=== PATIENT | female | born 1985 | race Caucasian/White ===

== ENCOUNTER → 2023-09-29 14:10 | Outpatient (CLI) | payer OTHER, SELFPAY ==
--- NOTE | 2023-09-29 14:11 | DI.CT.S_ITS ---
PROCEDURE: CT ANGIO CHEST PE PROTOCOL INDICATIONS: chest tightness, presyncope; dad with DVT, PE, warfarin @30 TECHNIQUE: After the administration of intravenous contrast, 2 mm thick sections acquired from the pulmonary apices to the posterior costophrenic angles. 3-dimensional maximum intensity projection (MIP) coronal and sagittal reformats were then acquired through the thorax. For radiation dose reduction, the following was used: automated exposure control, adjustment of mA and/or kV according to patient size. COMPARISON: None. FINDINGS: Image quality: Diagnostic. Pulmonary arteries: Pulmonary arteries are normal in size, and demonstrate no intraluminal filling defects to suggest central pulmonary embolism. Lower Neck: No enlarged lymph nodes. Thyroid: No thyroid nodules which require sonographic follow up, per consensus guidelines. Axillae: No enlarged lymph nodes. Chest Wall: Unremarkable. Bones: Unremarkable. Lungs and Pleura: No pneumothorax or pleural effusions. No consolidation or suspicious nodules. Incidental note of a 3 mm peripheral left upper lobe nodule (76/series 5). Heart: Heart size is normal. No pericardial effusion. Thoracic Vessels: No aortic aneurysm. Mediastinum and Gaye: No enlarged lymph nodes. Esophagus: No wall thickening. No hiatal hernia. Upper Abdomen: Visualized upper abdomen solid organs and bowel loops appear normal. IMPRESSION: No pulmonary embolus. No acute cardiopulmonary process. Dictated by: Cristian Vega M.D. on 09/29/2023 at 15:16 Approved by: Cristian Vega M.D. on 09/29/2023 at 15:22
[2023-09-29 15:58] LABS: Add Manual Diff / Slide Review NO; Basophils Absolute Auto 100 /uL (0-100); Basophils Percent Auto 0.7 % (0-2); Eosinophils Absolute Auto 100 /uL (0-450); Hematocrit 39.2 % (36-46); Hemoglobin 13.5 g/dL (12.0-16.0); Lymphocytes Absolute Auto 2600 /uL (1100-4500); Lymphocytes Percent Auto 30.4 % (25-40); Mean Corpuscular HGB Conc 34.4 % (30-36); Mean Corpuscular Hemoglobin 29.9 PG (26-34); Mean Corpuscular Volume 86.9 fL (80-100); Monocytes Absolute Auto 400 /uL (0-900); Monocytes Percent Auto 4.4 % (3-14); Neutrophils Absolute Auto 5400 /uL (1500-7000); Neutrophils Percent Auto 63.5 % (50-75); Platelet Count 229 X10^3/uL (150-400); Red Blood Cell Count 4.51 X10^6/uL (4.0-5.2); Red Cell Distribution Width 12.5 % (11.6-14.8); White Blood Cell Count 8.5 X10^3/uL (4.5-11.0)
[2023-09-29 16:39] LABS: Blood Urea Nitrogen 11 mg/dL (7-17); Calcium 9.3 mg/dL (8.4-10.2); Carbon Dioxide 23 mmol/L (22-32); Chloride 105 mmol/L (98-107); Creatine Kinase 55 U/L (30-135); Estimated Glomerular Filt Rate > 60 mL/min (>60); Glucose 83 mg/dL (70-100); HEMOLYSIS < 15 (0-50); Sodium 137 mmol/L (137-145)
[2023-09-29 16:50] LABS: Troponin I < 0.012 ng/mL (0.01-0.034)
[2023-09-29 16:54] LABS: HCG Quantitative /Beta subunit < 2.39 mIU/mL
[2023-09-29 17:12] LABS: Ferritin 32 ng/mL (6-137); Thyroid Stimulating Hormone 4.43 uIU/mL (0.47-4.68)
== END ==
PROVIDERS: PCP Family Medicine; Referring Provider Family Medicine; Visit Provider Family Medicine
DX: R07.89 Other chest pain (principal); R11.0 Nausea; R55 Syncope and collapse; R00.2 Palpitations; Z82.49 Family history of ischemic heart disease and other diseases of the circulatory system
CPT/HCPCS: 36415; 71275; 80048; 82550; 82728; 84443; 84484; 84702; 85025; Q9967

== ENCOUNTER 2023-09-29 15:10 | Emergency (ER) | payer OTHER, SELFPAY ==
[2023-09-29 15:26] VITALS: BP 129/82; PULSE 81; RESP 18; TEMP 36.8; O2SAT 98; BMI 22.6
--- NOTE | 2023-09-29 19:14 | ED.CHESTPAIN ---
HPI - Chest Pain General Chief Complaint: Chest Pain Stated Complaint: Chest pain, dizzy, nausea, sweats, Time Seen by Provider: 09/29/23 18:04 Source: patient and family Mode of arrival: Ambulatory History of Present Illness HPI narrative: Patient is a 38-year-old female who stated that last evening she was woken from sleep with an episode of having chest pain and dizziness. Also having some nausea night sweats. States the symptoms lasted approximately 30 minutes and then improved. She was evaluated the by the paramedics who reassured her that everything looked okay [place] labs to include thyroid studies and also troponin. Patient also had a CT scan of the chest earlier today which did not show any signs of pulmonary embolism or pneumonia. Related Data Home Medications Medication Instructions Recorded Confirmed albuterol sulfate 90 mcg/actuation inhalation 09/29/23 09/29/23 aerosol inhaler fluticasone furoate 100 1 ea inhalation DAILY 09/29/23 09/29/23 mcg-vilanterol 25 mcg/dose inhalation powder (Breo Ellipta) gabapentin 100 mg capsule 100 mg PO 3XD 09/29/23 09/29/23 Allergies Allergy/AdvReac Type Severity Reaction Status Date / Time No Known Drug Allergies Allergy Verified 09/29/23 15:25 Review of Systems Review of Systems ROS Unobtainable: All systems reviewed & are unremarkable except as noted in HPI and below Patient History Medical History History of gestational diabetes History of pre-eclampsia Family history of blood clots Surgical History (Updated 09/29/23 @ 10:51 by Franchesca Rosa MD) S/P Social History Smoking Status: Never smoker additional social history: PMHX: 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 -- asthma episodes since then went on a steroid inhaler and albuterol -- : GDM, Preeclampsia and csection gabapentin: 200mg for sleep MVI no estrogen regular menses 09/19- tob: none etoh: rarely FHX: warfarin -- dad -- DVT x 2, possible PE 09/2023 Smoking Status: Never smoker Substance Use Type: does not use Exam Initial Vital Signs Initial Vital Signs: Vital Signs Temperature 98.3 F 09/29/23 15:26 Pulse Rate 81 09/29/23 15:26 Respiratory Rate 18 09/29/23 15:26 Blood Pressure 129/82 09/29/23 15:26 Pulse Oximetry 98 09/29/23 15:26 Oxygen Delivery Method Room Air 09/29/23 15:26 Const General: cooperative, comfortable and No ill appearing HENMT Head: normal to inspection and normocephalic Resp Effort & Inspection: normal respiratory effort Auscultation: clear to auscultation bilaterally Cardio Rate: regular rate Rhythm: regular rhythm GI Inspection: normal to inspection Skin General: no rashes or lesions noted Neuro General: patient alert, patient awake, patient oriented x3 and moves all extremities Extrem General: normal to inspection and capillary refill normal Course Orders Ordered: ED Orders 09/29/23 18:06 EKG-12 Lead Stat 09/29/23 19:53 Troponin & CK Cardiac Panel Stat Vital Signs Vital signs: Vital Signs - 8 hr 09/29/23 20:49 Pulse Rate 79 Respiratory Rate 16 Blood Pressure 112/77 Pulse Oximetry 98 Oxygen Delivery Method Room Air MDM - Chest Pain Medical Records Data Attestation: I reviewed the patient's medical records. Lab Data Attestation: I reviewed the patient's lab results. Labs: Lab Results 09/29/23 Range/Units 19:53 Total Creatine Kinase 55 (30-135) U/L Troponin I < 0.012 (0.01-0.034) ng/mL ECG Data Attestation: I personally reviewed and interpreted this ECG as follows: Interpretation: Sinus rhythm Ventricular rate is 71 Normal axis Normal QRS Normal QTC No ST T wave changes MDM Narrative Medical decision making narrative: Review of the patient's workup up to this point shows outpatient labs that are unremarkable and a CT scan of the chest that is negative. Her EKG is unremarkable. She had a negative troponin earlier today as an outpatient and a repeat troponin today is negative as well. Low suspicion for ACS. There was no indication that this is a pulmonary embolism or pneumonia. No further workup required in the ER. Provided reassurance to the patient. She was given return precautions. Discharge Plan Departure Patient Disposition: Home Clinical Impression: Atypical chest pain Instructions: DI for Atypical Chest Pain Activity Restrictions/Additional Instructions: Continue to take all of your medications as directed. Contact your primary care doctor for a follow-up. Return to the emergency department for new or worsening symptoms. Prescriptions: No Action albuterol sulfate 90 mcg/actuation HFA aerosol inhaler inhalation fluticasone furoate-vilanterol [Breo Ellipta] 100-25 mcg/dose blister with device 1 ea inhalation DAILY gabapentin 100 mg capsule 100 mg PO 3XD Referrals: Franchesca Rosa MD [Primary Care Provider] - Stand Alone Forms: Patient Portal/API
[2023-09-29 20:26] LABS: Creatine Kinase 55 U/L (30-135)
[2023-09-29 20:39] LABS: Troponin I < 0.012 ng/mL (0.01-0.034)
[2023-09-29 20:49] VITALS: BP 112/77; PULSE 79; RESP 16; O2SAT 98
== END 2023-09-29 20:50 | disposition home or self-care (01) ==
PROVIDERS: Emergency Provider Emergency Medicine; PCP Family Medicine
DX: R07.89 Other chest pain (principal); R11.0 Nausea; R55 Syncope and collapse; R00.2 Palpitations; Z82.49 Family history of ischemic heart disease and other diseases of the circulatory system
CPT/HCPCS: 36415; 71275; 80048; 82550; 82728; 84443; 84484; 84702; 85025; 93005; 99281; 99282; Q9967